=== PATIENT | female | born 1955 | race Caucasian/White ===

== ENCOUNTER → 2018-10-22 | Outpatient (CLI) | payer OTHER ==
[~2018-10-22] MED LIST: CALC-733 PO; CYAN1000 IM; DULO30CA6 PO; NEED-601 MC; OXYB5TAB86 PO; PROP10TA58 PO
[2018-10-22 08:59] LABS: PLATELET COUNT, AUTOMATED 289 K/uL (150-450)
[2018-10-22 09:37] LABS: LDL CHOLESTEROL 97 mg/dl
== END ==
LOC: LAB 08:25
PROVIDERS: ATTEND Nurse Practitioner Family
DX: R03.0 Elevated blood-pressure reading, without diagnosis of hypertension (principal); R53.83 Other fatigue; G47.19 Other hypersomnia; Z79.899 Other long term (current) drug therapy
CPT/HCPCS: 36415; 82040; 82247; 82306; 82310; 82374; 82435; 82465; 82565; 82607; 82746; 82947; 83718; 84075; 84132; 84155; 84295; 84425; 84443; 84450; 84460; 84478; 84520; 85025

== ENCOUNTER → 2018-10-24 | Outpatient (CLI) | payer OTHER | LOC: RESP 20:48 | PROVIDERS: ATTEND Nurse Practitioner Family | DX: G47.33 Obstructive sleep apnea (adult) (pediatric) (principal); G47.61 Periodic limb movement disorder ==

== ENCOUNTER → 2018-11-22 | Outpatient (CLI) | payer OTHER ==
--- NOTE | 2018-11-25 09:47 | RADIOLOGY IMAGING REPORT ---
FACILITY: [facility] - [place] PATIENT NAME: JOEL LANDIS : [id number] MR: [id number] V: [id number] EXAM DATE: [id number] ORDERING PHYSICIAN: TIFFANIE BRICEÑO TECHNOLOGIST: Kym Almeida PROCEDURE: BILATERAL DIGITAL SCREENING MAMMOGRAM WITH CAD ASSISTED INTERPRETATION & 3D TOMOSYNTHESIS REASON FOR STUDY: Screening. FAMILY HISTORY OF BREAST CANCER: None. BREAST PROCEDURES/TREATMENTS: None. COMPARISON: None this is the patient's baseline mammogram. VIEWS OBTAINED: Bilateral 2D & 3D full field CC & MLO projections. BREAST DENSITY: The breasts are heterogeneously dense which can obscure small masses. MAMMOGRAM FINDINGS: There are 2 small round circumscribed masses in the upper outer quadrant of the Right breast in the middle posterior depth. The more anterior of the 2 is not ideally seen on the MLO view. Sense there are no prior studies available for comparison Right breast Ultrasound is recommended. IMPRESSION: BIRADS 0: Incomplete. Right breast Ultrasound recommended as described. DIAGNOSTIC CATEGORY 0--INCOMPLETE: NEED ADDITIONAL IMAGING EVALUATION. RECOMMENDATIONS: ULTRASOUND: RIGHT BREAST. Dictated by: Claudine Garces M.D. on 11/22/2018 at 15:29 Transcribed by: FLORENTINO on 11/25/2018 at 7:56 Approved by: Claudine Garces M.D. on 11/25/2018 at 9:44 [facility]
== END ==
LOC: MAMO 14:52
PROVIDERS: ATTEND Nurse Practitioner Family
DX: R92.2 Inconclusive mammogram (principal)
CPT/HCPCS: 77063; 77067

== ENCOUNTER → 2018-12-10 | Outpatient (CLI) | payer OTHER ==
[~2018-12-10] MED LIST changes: +FERR-53 PO; +[UNRECOGNIZED DRUG - OTHER]
== END ==
LOC: LAB 11:41
PROVIDERS: ATTEND Nurse Practitioner Family
DX: G25.81 Restless legs syndrome (principal)
CPT/HCPCS: 36415; 82728; 83540; 83550

== ENCOUNTER → 2018-12-30 | Outpatient (CLI) | payer OTHER ==
--- NOTE | 2018-12-31 14:37 | RADIOLOGY IMAGING REPORT ---
FACILITY: [facility] - [place] PATIENT NAME: JOEL LANDIS : [id number] MR: [id number] V: [id number] EXAM DATE: [id number] ORDERING PHYSICIAN: TIFFANIE BRICEÑO TECHNOLOGIST: Edison Ontiveros RDMS, PAUL PROCEDURE:US RIGHT BREAST COMPARISON:Mammogram 11/22/18. INDICATIONS:FURTHER EVAL AREAS SCANNED: 8-12 o'clock position of the Right breast. FINDINGS: There is a small cluster of cysts in the 8 o'clock position of the Right breast 7cm from the nipple collectively measuring 5mm in diameter. Also in the 8 o'clock position of the Right breast 7cm from the nipple is a 2.5mm cyst. In the 9 o'clock position of the Right breast 9cm from the nipple there is a 4mm cyst. This likely represents the recent mammographic findings. DIAGNOSTIC CATEGORY 2--BENIGN FINDING. RECOMMENDATIONS: ROUTINE MAMMOGRAM AND CLINICAL EVALUATION. IMPRESSION: BIRADS 2: Benign finding. Dictated by: Claudine Garces M.D. on 12/30/2018 at 16:27 Transcribed by: FLORENTINO on 12/31/2018 at 10:04 Approved by: Claudine Garces M.D. on 12/31/2018 at 14:32 [facility]
== END ==
LOC: US 00:52
PROVIDERS: ATTEND Nurse Practitioner Family
DX: R92.8 Other abnormal and inconclusive findings on diagnostic imaging of breast (principal)

== ENCOUNTER → 2019-01-09 | Outpatient (CLI) | payer OTHER | LOC: RESP 19:59 | PROVIDERS: ATTEND Nurse Practitioner Family | DX: G47.33 Obstructive sleep apnea (adult) (pediatric) (principal); G47.36 Sleep related hypoventilation in conditions classified elsewhere; G47.61 Periodic limb movement disorder ==